=== PATIENT | male | born 1985 | race Caucasian/White ===

== ENCOUNTER 2018-08-07 04:13 | Emergency (ER) | payer OTHER ==
[2018-08-07 04:24] VITALS: TEMP 97.7; BMI 26.5
--- NOTE | 2018-08-07 04:27 | PDOC ---
History of Present Illness - General Chief Complaint: Back Pain Stated Complaint: LOW BACK PAIN Time Seen by Provider: 08/07/18 04:26 - History of Present Illness Initial Comments: 08/07/18 04:26 Mr. Alva is a 33 yo male w/ no pmh who presents for evaluation of R flank pain radiating to his R abdomen since approximately 11pm last night. Patient reports it was sudden onset and he has had difficulty staying comfortable and was unable to sleep from the pain. Patient attempted to take tylenol however vomited it up 2/2 pain. Patient has never had this in the past. Denies any problems urinating however reports "less" is coming out than expected. Last BM was yesterday and normal. No other complaints at this time. The patient denies chest pain, shortness of breath, headache and dizziness. Denies fever, chills, diarrhea and constipation. Denies dysuria, frequency, urgency and hematuria. Past History - Past Medical History Allergies/Adverse Reactions: Allergies Allergy/AdvReac Type Severity Reaction Status Date / Time No Known Allergies Allergy Verified 08/07/18 04:20 Home Medications: Ambulatory Orders NK [No Known Home Medication] 08/07/18 COPD: No - Suicide/Smoking/Psychosocial Hx Smoking History: Never smoked Review of Systems - Review of Systems Comments:: 08/07/18 04:26 GENERAL/CONSTITUTIONAL: No fever or chills. No weakness. HEAD, EYES, EARS, NOSE AND THROAT: No change in vision. No ear pain or discharge. No sore throat. CARDIOVASCULAR: No chest pain or shortness of breath RESPIRATORY: No cough, wheezing, or hemoptysis. GASTROINTESTINAL: +N/V with RLQ pain as described. No diarrhea or constipation. GENITOURINARY: No dysuria, frequency, or change in urination. MUSCULOSKELETAL: No joint or muscle swelling or pain. No neck or back pain. SKIN: No rash NEUROLOGIC: No headache, vertigo, loss of consciousness, or change in strength/ sensation. ENDOCRINE: No increased thirst. No abnormal weight change HEMATOLOGIC/LYMPHATIC: No anemia, easy bleeding, or history of blood clots. ALLERGIC/IMMUNOLOGIC: No hives or skin allergy. *Physical Exam - Vital Signs Last Vital Signs Temp Pulse Resp BP Pulse Ox 97.7 F 62 18 131/72 100 08/07/18 04:20 08/07/18 04:20 08/07/18 04:20 08/07/18 04:20 08/07/18 04:20 - Physical Exam Comments: 08/07/18 04:26 GENERAL: Awake, alert, and fully oriented, in no acute distress HEAD: No signs of trauma, normocephalic, atraumatic EYES: PERRLA, EOMI, sclera anicteric, conjunctiva clear ENT: Auricles normal inspection, hearing grossly normal, nares patent, oropharynx clear without exudates. Moist mucosa NECK: Normal ROM, supple, no lymphadenopathy, JVD, or masses LUNGS: No distress, speaks full sentences, clear to auscultation bilaterally HEART: Regular rate and rhythm, normal S1 and S2, no murmurs, rubs or gallops, peripheral pulses normal and equal bilaterally. ABDOMEN: +Right flank and RLQ TTP. Soft, normoactive bowel sounds. No guarding, no rebound. No masses EXTREMITIES: Normal inspection, Normal range of motion, no edema. No clubbing or cyanosis. NEUROLOGICAL: Cranial nerves II through XII grossly intact. Normal speech, normal gait, no focal sensorimotor deficits SKIN: Warm, Dry, normal turgor, no rashes or lesions noted. ED Treatment Course - LABORATORY CBC & Chemistry Diagram: 08/07/18 05:02 08/07/18 05:02 Medical Decision Making - Medical Decision Making 08/07/18 06:36 Mr. Alva is a 33 yo male w/ pmh as described who presents for evaluation of symptoms concerning for appendicitis vs. kidney stone. Patient evaluated with labs as below as well as CT spiral and given morphine and toradol for pain control. Patient noted to have 2mm stone w/ minimal hydro and no obstruction on CT. Labs grossly wnl. Patient will be discharged with urology follow-up. No concern for acute process at this time. Laboratory Results - last 24 hr 08/07/18 08/07/18 08/07/18 05:02 05:02 05:10 WBC 9.9 RBC 5.09 Hgb 16.0 Hct 47.3 MCV 93.1 MCH 31.4 MCHC 33.8 RDW 12.7 Plt Count 255 MPV 9.5 Absolute Neuts (auto) 7.5 Neutrophils % 75.3 Lymphocytes % 16.0 Monocytes % 6.5 Eosinophils % 1.8 Basophils % 0.4 Nucleated RBC % 0 Sodium 141 Potassium 4.5 Chloride 106 Carbon Dioxide 29 Anion Gap 6 L BUN 13 Creatinine 0.9 Est GFR (CKD-EPI)AfAm 131.44 Est GFR (CKD-EPI)NonAf 113.41 Random Glucose 160 H Calcium 8.6 Total Bilirubin 0.3 AST 16 ALT 23 Alkaline Phosphatase 99 Total Protein 7.3 Albumin 4.4 Urine Color Yellow Urine Appearance Cloudy Urine pH 6.5 Ur Specific [place] 1.026 Urine Protein Trace Urine Glucose (UA) Negative Urine Ketones Trace H Urine Blood 3+ H Urine Nitrite Negative Urine Bilirubin Negative Urine Urobilinogen 1.0 Ur Leukocyte Esterase Trace Urine WBC (Auto) 2 Urine RBC (Auto) 1156 Urine Casts (Auto) 2 U Epithel Cells (Auto) 1.0 Urine Bacteria (Auto) 1.5 *DC/Admit/Observation/Transfer Diagnosis at time of Disposition: Kidney stone - Discharge Dispostion Disposition: HOME - Referrals Referrals: Hector Fuller MD [Staff Physician] - - Patient Instructions Printed Discharge Instructions: DI for Kidney Stones Additional Instructions: You were evaluated today in the ER and found to have a kidney stone. It is small in size and should pass without difficulty. We have provided you with urology follow-up that you may use for further evaluation. You may take over the counter motrin per package instructions for pain control. Please follow-up with primary care provider later this week for further evaluation. Return to ER if any increase or continuation of pain, fever, chills, inability to urinate, or other concerning symptoms. - Post Discharge Activity
[2018-08-07] MEDS ORDERED: KETOROLAC TROMETHAMINE 15 MG/ML VIAL IVPUSH ONE (04:48)
[2018-08-07] MEDS ORDERED: KETOROLAC TROMETHAMINE 15 MG/ML VIAL ONE (04:55)
[2018-08-07] MEDS ORDERED: morphine CARPU-JECT 4 MG/1 ML DISP.SYRIN IVPUSH ONE (05:17)
[2018-08-07 05:21] LABS: PH,URINE 6.5 (5.0-8.0); URINE APPEARANCE CLOUDY; URINE BACTERIA 1.5 /hpf (NEGATIVE); URINE BILIRUBIN NEGATIVE (NEGATIVE); URINE CASTS 2 /lpf (0-8); URINE COLOR YELLOW; URINE GLUCOSE (UA) NEGATIVE (NEGATIVE); URINE KETONE TRACE (NEGATIVE); URINE LEUK ESTERASE TRACE (NEGATIVE); URINE NITRITE NEGATIVE (NEGATIVE); URINE PROTEIN TRACE (NEGATIVE); URINE RBC 1156 /hpf (0-4); URINE WBC 2 /hpf (0-5)
[2018-08-07 05:23] LABS: BASO % 0.4 % (0-2.0); EOS % 1.8 % (0-4.5); HEMATOCRIT 47.3 % (35.4-49); MCH 31.4 pg (25.7-33.7); MCHC 33.8 g/dl (32.0-35.9); MEAN CELL VOLUME 93.1 fl (80-96); MEAN PLT VOLUME 9.5 fl (7.5-11.1); MONO % 6.5 % (3.8-10.2); NEUT % 75.3 % (42.8-82.8); PLATELET COUNT 255 K/MM3 (134-434); RBC 5.09 M/mm3 (4.00-5.60); RDW 12.7 % (11.9-15.9); WHITE BLOOD COUNT 9.9 K/mm3 (4.0-10.0)
[2018-08-07] MEDS ORDERED: morphine SULFATE 4 MG/ML VIAL ONE (05:33)
[2018-08-07 05:47] LABS: ALBUMIN 4.4 g/dl (3.4-5.0); BILIRUBIN,TOTAL 0.3 mg/dL (0.2-1); CALCIUM 8.6 mg/dL (8.5-10.1); CREATININE 0.9 mg/dL (0.55-1.3); POTASSIUM 4.5 mmol/L (3.5-5.1); TOT PROT 7.3 g/dl (6.4-8.2)
--- NOTE | 2018-08-07 06:21 | PDOC ---
Attending Attestation - Resident Resident Name: Frandy Vang - ED Attending Attestation I have performed the following: I have examined & evaluated the patient, The case was reviewed & discussed with the resident, I agree w/resident's findings & plan, Exceptions are as noted - HPI HPI: 08/07/18 06:20 33 yo male no pmhx here with c/o right sided flank pain started yetserday. right flank now radiating around to front. no f/c no urinary complaints. but has difficulty with flow. no f/c no hematuria. no known ho renal colic, no injury. no new weakness or numbness. no testicular pain. pain severe colickly and sharp. - Physicial Exam PE: 08/07/18 06:21 awake alert lungs cTAB. heart RRR nomrg abd soft no cva tenderness. nontender. ext wwp no edema. no calf tenderness. skin warm and dry. - Medical Decision Making 08/07/18 06:21 differnetial uti pyelo renal colic plan ct a/p ua pain control ivf. 08/07/18 06:37 2 mm right uvj stone, minimal hydronephrosis. pt pain much improved. with toradol and morphine. will dc home with urology and motrin prescriptions.
[2018-08-07 06:59] VITALS: BP 135/75; PULSE 63
== END 2018-08-07 06:57 | disposition home or self-care (01) ==
LOC: JER 04:13
PROC: 3E033NZ Introduction of Analgesics, Hypnotics, Sedatives into Peripheral Vein, Percutaneous Approach (ICD-10-PCS; principal; 2018-08-07)
PROC: 3E0333Z Introduction of Anti-inflammatory into Peripheral Vein, Percutaneous Approach (ICD-10-PCS; 2018-08-07)
DX: N13.2 Hydronephrosis with renal and ureteral calculous obstruction (principal)
CPT/HCPCS: 36415; 74176-TC; 80053; 81003; 85025; 87086; 99282-25